=== PATIENT | female | born 1980 | race African-American/Black ===

== ENCOUNTER 2017-06-17 17:45 | Emergency (ER) | payer OTHER ==
[~2017-06-17 17:45] MED LIST: HYDR-971 PO; LEVO137T3 PO; SULF1TAB24 PO
[2017-06-17 17:57] VITALS: BP 162/96
[2017-06-17] MEDS ORDERED: AMOX1TAB61 PO (18:39)
[2017-06-17] MEDS ORDERED: PRED20TA PO (18:39)
--- NOTE | 2017-06-17 18:39 | PHYS DOC ---
Past Medical History Past Medical History: Hypothyroid Past Surgical History: Appendectomy, Cholecystectomy, , Other Additional Past Surgical Histo: thyroid, ablation Alcohol Use: None Drug Use: None Adult General Chief Complaint Chief Complaint: HYPERVENTILATION HPI HPI Patient is a 37 year old female presents to the emergency department stating that she's had a cough congestion with productive cough beings streaked with redness. She states she's been having fevers however has not taken her temperature. She has taken NyQuil for discomfort with no relief. Patient states she's been having some difficulty with breathing however she does not appear to be in any distress at the current time. Review of Systems Review of Systems Constitutional: subjective fevers Eyes: Denies change in visual acuity, redness, or eye pain [] HENT: nasal congestion denies sore throat [] Respiratory: cough with SOA Cardiovascular: No additional information not addressed in HPI [] GI: Denies abdominal pain, nausea, vomiting, bloody stools or diarrhea [] : Denies dysuria or hematuria [] Musculoskeletal: Denies back pain or joint pain [] Integument: Denies rash or skin lesions [] Neurologic: Denies headache, focal weakness or sensory changes [] Endocrine: Denies polyuria or polydipsia [] All other systems were reviewed and found to be within normal limits, except as documented in this note. Allergies Allergies Allergies Coded Allergies Type Severity Reaction Last Updated Verified No Known Drug Allergies 09/21/13 No Physical Exam Physical Exam Constitutional: Well developed, well nourished, no acute distress, non-toxic appearance. [] HENT: Normocephalic, atraumatic, bilateral external ears normal, oropharynx moist, no oral exudates, nose normal. Bilateral tympanic membranes appear to be normal. Throat with postnasal drip noted erythemas noted no exudate. Frontal and maxillary sinus tenderness noted. Eyes: PERRLA, EOMI, conjunctiva normal, no discharge. [] Neck: Normal range of motion, no tenderness, supple, no stridor. [] Cardiovascular:Heart rate regular rhythm, no murmur [] Lungs & Thorax: Bilateral breath sounds clear to auscultation [] Skin: Warm, dry, no erythema, no rash. [] Extremities: No tenderness, no cyanosis, no clubbing, ROM intact, no edema. [] Neurologic: Alert and oriented X 3, normal motor function, normal sensory function, no focal deficits noted. [] Psychologic: Affect normal, judgement normal, mood normal. [] Current Patient Data Vital Signs Vital Signs Date Time Temp Pulse Resp B/P (MAP) Pulse Ox O2 Delivery O2 Flow Rate FiO2 06/17/17 17:57 98.3 104 24 99 Room Air 98.3 EKG EKG [] Radiology/Procedures Radiology/Procedures [] Course & Med Decision Making Course & Med Decision Making Pertinent Labs and Imaging studies reviewed. (See chart for details) Patient will be discharged home with prednisone, Augmentin with recommendations for Sudafed and Mucinex DM. Patient was encouraged to use Tylenol and ibuprofen for fever chills or generalized body aches and discomfort. Recommended plenty of fluids. In stable condition signs and symptoms to return back to the emergency department has been provided. All questions and concerns were answered at bedside. I've spoken with the patient and/or caregivers. I've explained the patient's condition, diagnosis and treatment plan based on information available to me at this time. I've answered the patient's and/or caregivers questions and addressed any concerns. The patient and/or caregivers have a good understanding the patient's diagnosis, condition and treatment plan as can be expected at this point. Vital signs have been stabilized. The patient's condition is stable for discharge from the emergency department. The patient will pursue further outpatient evaluation with her primary care provider or other designated consulting physician as outlined in the discharge instructions. Patient and/or caregivers are agreeable to this plan of care and follow-up instructions have been explained in detail. The patient and/or caregivers have received these instructions in written format and expressed understanding of these discharge instructions. The patient and her caregivers are aware that if any significant change in condition or worsening of symptoms should prompt him to immediately return to this of the closest emergency department. If an emergent department is not readily available I would encourage him to call 911. [] Dragon Disclaimer Dragon Disclaimer This electronic medical record was generated, in whole or in part, using a voice recognition dictation system. Departure Departure Impression: Primary Impression: Sinusitis Disposition: HOME, SELF-CARE Condition: STABLE Referrals: ZHANG WALLACE MD (PCP) Patient Instructions: Sinusitis, [id number] Additional Instructions: Activity as tolerated. Medications as prescribed. Sudafed and Mucinex DM a be taken [id number] instructed by manufacture. Tylenol or ibuprofen for fever chills or generalized body aches and discomfort. Plenty of fluids such as water, Gatorade or propel. With primary care physician in the next 5-7 days. Return back to the emergency department for signs and symptoms that become worse. Scripts Prednisone (PREDNISONE) 20 Mg Tablet 40 MG PO DAILY for 7 Days, #14 TAB Prov: BHUMI STRANGE APRN 06/17/17 Amoxicillin/Potassium Clav (AUGMENTIN 875-125 TABLET) 1 Each Tablet 1 TAB PO BID, #20 TAB Prov: BHUMI STRANGE APRN 06/17/17 Problem Qualifiers Primary Impression: Sinusitis Sinusitis location: unspecified location Chronicity: unspecified Qualified Codes: J32.9 - Chronic sinusitis, unspecified BHUMI STRANGE APRN Jun 17, 2017 18:39
[2017-06-17] MEDS ORDERED: predniSONE 20 MG TABLET PO ONE (18:45)
== END 2017-06-17 18:58 | disposition home or self-care (01) ==
LOC: ER 17:45
DX: J32.9 Chronic sinusitis, unspecified (principal); E03.9 Hypothyroidism, unspecified
CPT/HCPCS: 99283; J7512

== ENCOUNTER → 2019-03-18 | Outpatient (CLI) | payer OTHER ==
[~2019-03-18] MED LIST changes: +AMOX1TAB61 PO; +HYDR-3164 PO; -HYDR-971 PO; +PRED20TA PO
--- NOTE | 2019-03-18 16:45 | KCIC ---
Indication:Fall. TECHNIQUE: 3 views of the right ankle and 3 views of the right foot COMPARISON:None FINDINGS: Ankle: No acute fracture or dislocation. No significant ankle swelling. Ankle mortise is intact. Foot: No acute fracture or dislocation. IMPRESSION: As above. Electronically signed by: Moiz Adhikari DO (03/18/2019 4:42 PM) [facility]
== END | disposition home or self-care (01) ==
LOC: KCIC 15:56
PROVIDERS: ATTEND Family Medicine
DX: M79.671 Pain in right foot (principal); M25.571 Pain in right ankle and joints of right foot
CPT/HCPCS: 73610; 73630

== ENCOUNTER → 2020-05-27 | Outpatient (CLI) | payer OTHER ==
[~2020-05-27] MED LIST changes: +HYDR12.575 PO
== END ==
LOC: LAB 14:23
PROVIDERS: ATTEND Surgery
DX: Z01.812 Encounter for preprocedural laboratory examination (principal); Z20.828 Contact with and (suspected) exposure to other viral communicable diseases
CPT/HCPCS: U0003

== ENCOUNTER 2020-06-01 09:44 | Day surgery (SDC) | payer OTHER ==
[~2020-06-01] VITALS: Ht 170.2 cm; Wt 105.5 kg
[~2020-06-01 09:44] MED LIST changes: +DEXAMETHASONE SOD PHOS 4 MG/ML VIAL ONE; -HYDR12.575 PO; +HYDROmorphone 2 MG/ML VIAL IV PRN; +IV RINGERS,LACTATED 1000ML 1,000 ML IV SCH; +KETOROLAC 30 MG/ML VIAL. ONE; +LIDOCAINE 2% PF 5 ML VIAL. ONE; +MIDAZOLAM HCL/PF 2 MG/2 ML VIAL. ONE; +ONDANSETRON PF 4 MG/2 ML VIAL. IV PRN; +ONDANSETRON PF 4 MG/2 ML VIAL. ONE; +PROCHLORPERAZINE 10 MG/2 ML VIAL. IV PRN; +PROPOFOL 10 MG/ML (20ML) VIAL. IV ONE; +SEVOFLURANE 31 TO 60 MINUTES. IH ONE; +fentaNYL PF VIAL 100 MCG/2 ML VIAL IV PRN; +fentaNYL PF VIAL 100 MCG/2 ML VIAL ONE
[2020-06-01] MEDS ORDERED: HYDR12.575 PO (10:17)
[2020-06-01] MEDS ORDERED: SCOPOLAMINE 1.5MG PATCH. TD ONE (10:27)
[2020-06-01] MEDS ORDERED: SCOPOLAMINE 1.5MG PATCH. TD SCH (10:29)
[2020-06-01] MEDS ORDERED: ROCURONIUM 50 MG/5 ML VIAL. ONE (11:42)
[2020-06-01] MEDS ORDERED: GLYCOPYRROLATE 1 MG/5 ML VIAL. ONE (12:32)
[2020-06-01] MEDS ORDERED: LIDOCAINE 1%/EPI 1:100,000 20 ML VIAL. ONE (12:59)
--- NOTE | 2020-06-01 13:57 | DISCH ---
DISCHARGE INSTRUCTIONS Condition on Discharge Condition on Discharge: Stable Activity After Discharge Activity Instructions for Disc: Activity as tolerated Driving Instructions after Dis: Other, see below (no driving if taking pain meds) Diet after Discharge Diet after Discharge: Regular Wound Incision Care Wound/Incision Care: Other, see below Follow-Up Follow up with: Dr Nicholas in 2 weeks in office, NOAH NICHOLAS MD Jun 01, 2020 13:57
--- NOTE | 2020-06-01 14:04 | PDOC4 ---
Operative Note Operative Note Operative Note: Preoperative Diagnosis: Back mass Postoperative Diagnosis: Same Procedure: Excision of back mass Surgeon: Benny [employer] Service Manager: Gautam RAND Anesthesia: Gen EBL: 10 ml Specimen: Back mass to pathology 4.5 X 4.5 cm Drains: None Complications: None Indication: The patient is a 40-year-old female who was referred with a mass of her right lower back that is symptomatic. She requests excision. The risks of surgery were discussed which include bleeding, infection, recurrence, pain, anesthetic risk, potential need for additional surgery procedure. She understands and would like to proceed. Description: The patient was taken to the operating room and placed supine in the operating table. General anesthesia was performed. She was then placed on her left side down on the operating table. The right lower back was exposed and prepped with ChloraPrep and draped in a standard surgical manner. An incision was made over the mass with a scalpel. Cautery dissection was carried down in subcutaneous tissues. The mass was comprised of lobulated adipose tissue with multiple fibrous septations. All of the septations were freed up and the mass was fully delivered. The mass measured approximately 4.5 x 4.5 cm and was sent to pathology for evaluation. Several small bleeding points were controlled with cautery. Hemostasis was then good. The subcutaneous tissue was closed with 3-0 Vicryl and skin approximated with 4-0 Monocryl. The incision was infiltrated with half percent Marcaine with epinephrine. Steri-Strips and a sterile dressing were then applied. The patient tolerated the procedure well and was sent to the recovery room in stable condition. At the end of the case all counts were correct. NOAH NICHOLAS MD Jun 01, 2020 14:04
[2020-06-01] MEDS ORDERED: fentaNYL PF VIAL 100 MCG/2 ML VIAL ONE (14:09)
[2020-06-01] MEDS: fentaNYL PF VIAL 100 MCG/2 ML VIAL IV PRN ×2 (14:12→14:19)
[2020-06-01] MEDS ORDERED: MORPHINE SULFATE 2 MG/ML VIAL. ONE (14:17)
[2020-06-01] MEDS: MORPHINE SULFATE 2 MG/ML VIAL. IV PRN ×2 (14:20→14:31)
[2020-06-01] MEDS ORDERED: HYDR-3164 PO (14:22)
[2020-06-01] MEDS ORDERED: HYDROcodone/APAP 5/325MG 1 TAB TABLET PO ONE ×2 (14:30)
[2020-06-01 14:59] VITALS: BP 142/70
--- NOTE | 2020-06-03 22:06 | PATHOLOGY ---
[facility] Accession Number: [id number] . 01 Material submitted: . back - BACK MASS . 02 Diagnosis: "Back mass", excision: - Mature adipose tissue with adjacent fibrovascular connective tissue consistent with lipoma. (CLW/db; 06/03/2020) LBQ 06/03/2020 1529 Local . 02 Electronically signed: . Zoila Matute MD, Pathologist NPI- [id number] . 01 Gross description: . The specimen is received in formalin, labeled "Cosme, Maris, back mass" and consists of 2 irregular segments of yellow lobulated tissue measuring 6.5 x 4.4 x 2.2 cm. Sectioning reveals a cut surfaces and senior sales representative sections are submitted in A1-A3. (SDY; 06/02/2020) SYU/SYU 06/02/2020 1723 Local . 02 Pathologist provided ICD-10: R22.2 . 02 CPT . 997158 Specimen Comment: A courtesy copy of this report has been sent to [phone], [phone] Specimen Comment: [id number] Specimen Comment: Report sent to / DR MEDEIROS Performed at: 01 [facility] [address], [place] [id number] MD Shaggy Henson MD Phone: [phone] Performed at: 02 [facility] [address], [place] [id number] MD Judson Judd MD Phone: [phone]
== END 2020-06-01 15:30 | disposition home or self-care (01) ==
LOC: SURG 09:44
PROVIDERS: ATTEND Surgery
DX: R22.2 Localized swelling, mass and lump, trunk (principal); E03.9 Hypothyroidism, unspecified; I10 Essential (primary) hypertension; E78.00 Pure hypercholesterolemia, unspecified; K21.9 Gastro-esophageal reflux disease without esophagitis; E11.9 Type 2 diabetes mellitus without complications; F32.9 Major depressive disorder, single episode, unspecified; E66.9 Obesity, unspecified; Z90.710 Acquired absence of both cervix and uterus; Z98.890 Other specified postprocedural states; Z79.899 Other long term (current) drug therapy
CPT/HCPCS: 21931; 81025; 88304; A7015; J0690; J1100; J1885; J2250; J2270; J2405; J2704; J3010; J3490

== ENCOUNTER → 2021-05-22 | Outpatient (CLI) | payer OTHER ==
[~2021-05-22] MED LIST changes: -DEXAMETHASONE SOD PHOS 4 MG/ML VIAL ONE; +HYDR12.575 PO; -HYDROmorphone 2 MG/ML VIAL IV PRN; -IV RINGERS,LACTATED 1000ML 1,000 ML IV SCH; -KETOROLAC 30 MG/ML VIAL. ONE; -LIDOCAINE 2% PF 5 ML VIAL. ONE; -MIDAZOLAM HCL/PF 2 MG/2 ML VIAL. ONE; -ONDANSETRON PF 4 MG/2 ML VIAL. IV PRN; -ONDANSETRON PF 4 MG/2 ML VIAL. ONE; -PROCHLORPERAZINE 10 MG/2 ML VIAL. IV PRN; -PROPOFOL 10 MG/ML (20ML) VIAL. IV ONE; -SEVOFLURANE 31 TO 60 MINUTES. IH ONE; -fentaNYL PF VIAL 100 MCG/2 ML VIAL IV PRN; -fentaNYL PF VIAL 100 MCG/2 ML VIAL ONE
--- NOTE | 2021-05-22 16:17 | RAD ---
EXAM: Pelvic sonogram. HISTORY: Menorrhagia. TECHNIQUE: Transabdominal and transvaginal sonographic imaging of the pelvis was performed. COMPARISON: None. FINDINGS: The uterus measures 8.6 x 5.1 x 4.1 cm. The endometrial stripe measures less than 2 mm in t hickness. The uterus is retroverted. The ovaries are normal in size and demonstrate normal blood flow . No adnexal mass or cyst is seen There is moderate pelvic free fluid. IMPRESSION: 1. Moderate pelvic free fluid. 2. Thin endometrium. Electronically signed by: Faye Hernandez MD (05/22/2021 4:15 PM) [id number]
== END ==
LOC: US 15:01
PROVIDERS: ATTEND Obstetrics & Gynecology
DX: N85.4 Malposition of uterus (principal); N92.0 Excessive and frequent menstruation with regular cycle
CPT/HCPCS: 76830; 76856

== ENCOUNTER → 2021-10-12 | Outpatient (CLI) | payer OTHER ==
--- NOTE | 2021-10-12 14:39 | KCIC ---
Left breast ultrasound: Reason for examination: Nodules on screening mammogram. Comparison is made to mammographic exam dated 09/28/2021. Ultrasound examination of the left breast and axilla was performed. At the 3:00 position 4 cm from the nipple, there is a 1.5 cm simple cyst. At the 3:00 position 6 cm f rom the nipple, there is a 2.2 cm simple cyst. At the 3:30 position 4 cm from the nipple, there is a small 4.2 mm hypoechoic fibrocystic type nodule with no abnormal vascularity. No abnormal appearing l ymph nodes are seen in the axilla. IMPRESSION: Simple cysts at the 3:00 position measuring 1.5 and 2.2 cm in greatest dimensions. Small 4.2 mm hypoechoic fibrocystic type nodule at the 3:30 position. Recommend 6 month follow-up with ultrasound. BI-RADS Category 3: Probably Benign. "Our facility is accredited by the [employer] Mammography Program." This patient's information has been entered into a reminder system for the patient to be notified wit h the results of her examination and a target date for the next mammogram. Electronically signed by: Trinidad Chen MD (10/12/2021 2:37 PM) [id number]
== END ==
LOC: KCIC US 13:00
PROVIDERS: ATTEND Family Medicine
DX: N60.02 Solitary cyst of left breast (principal); N63.23 Unspecified lump in the left breast, lower outer quadrant; R92.8 Other abnormal and inconclusive findings on diagnostic imaging of breast
CPT/HCPCS: 76641

== ENCOUNTER → 2021-10-23 | Outpatient (CLI) | payer OTHER ==
[~2021-10-23] MED LIST changes: +CONTRAST GIVEN. MC PRN; +IOHEXOL 240 MG/ML 50ML VIAL. PO ONE; +IOHEXOL 300 MG/ML 100ML VIAL. IV ONE
--- NOTE | 2021-10-23 10:43 | KCIC ---
INDICATION: Reason: RLQ pain 6 months. Worse when pt. coughs or sneezes. / Spl. Instructions: 100cc Omni 300 / History: Appendectomy, , gastric sleeve. COMPARISON: None. TECHNIQUE: Axial CT images were obtained through the abdomen and pelvis with intravenous contrast. One or more of the following individualized dose reduction techniques were utilized for this examinat ion: 1. Automated exposure control; 2. Adjustment of the mA and/or kV according to patient size; 3 . Use of iterative reconstruction technique. FINDINGS: Right atrium partially seen and appears enlarged. There is some contrast at the distal esophagus with causes such as retention or mild reflux not exclu ded. Trace pericardial fluid. Vascular: No abdominal aortic aneurysm. Hepatobiliary: Liver is low density which can be seen with fatty infiltration.. Pancreas: No peripancreatic edema. Spleen: Calcified granulomas. Renal/Bladder: Urinary bladder is decompressed. 2 mm nonobstructive right renal stone. No hydronephro sis. Gastrointestinal: Small free fluid in the pelvis. Rim-enhancing structure left adnexa measuring appro ximately 12 mm appearing could be associated with the left ovary. Colonic diverticulosis. Post append ectomy changes. No dilated loops of bowel to suggest destruction. Degenerative changes the spine with multilevel central canal and neural foraminal stenosis. Postopera tive appearance of the stomach. There is some prominence of the distal aspect of the stomach wall. De generative changes of the sacroiliac joints. Tiny fat-containing umbilical hernia. IMPRESSION: * No evidence of bowel obstruction. * There is some prominence of the wall of the distal aspect of the stomach. Could be from a region o f contraction but pathologic causes such as gastritis, gastric ulcer or gastric lesion is not exclude d on this exam. * Low-density of the liver which can be seen with fatty infiltration. Electronically signed by: Charles Santo MD (10/23/2021 10:40 AM) [id number]
== END ==
LOC: KCIC CT 08:03
PROVIDERS: ATTEND Family Medicine
DX: N20.0 Calculus of kidney (principal); D73.89 Other diseases of spleen; N83.8 Other noninflammatory disorders of ovary, fallopian tube and broad ligament; K57.30 Diverticulosis of large intestine without perforation or abscess without bleeding; M47.819 Spondylosis without myelopathy or radiculopathy, site unspecified; M46.1 Sacroiliitis, not elsewhere classified; M48.00 Spinal stenosis, site unspecified
CPT/HCPCS: 74177; Q9966; Q9967